=== PATIENT | female | born 1980 | race Caucasian/White ===

== ENCOUNTER → 2022-01-04 | Outpatient (CLI) | payer OTHER, MEDICAID ==
[~2022-01-04] MED LIST: ACET1TAB43 PO; ASPI-999 PO; CEPH-507 PO; CITA10TA9 PO; DOCU100C37 PO; FERR325T18 PO; FOLI1TAB33 PO; IBUP-1773 PO; PNV91TAB3 PO
[2022-01-04 16:14] LABS: BASOPHILS % (AUTO) 1 % (0-10); EOSINOPHILS # (AUTO) 0.1 10^3/uL (0.0-0.3); EOSINOPHILS % (AUTO) 2 % (0-10); HEMATOCRIT 36 % (35-52); HEMOGLOBIN 11.7 g/dL (11.5-16.0); LYMPHOCYTES # (AUTO) 1.4 10^3/uL (1.0-4.0); LYMPHOCYTES % (AUTO) 23 % (12-44); MEAN CORPUSCULAR HEMOGLOBIN 32 pg (25-34); MEAN CORPUSCULAR HGB CONC 33 g/dL (32-36); MEAN CORPUSCULAR VOLUME 97 fL (80-99); MONOCYTES # (AUTO) 0.3 10^3/uL (0.0-1.0); MONOCYTES % (AUTO) 5 % (0-12); NEUTROPHILS # (AUTO) 4.4 10^3/uL (1.8-7.8); NEUTROPHILS % (AUTO) 70 % (42-75); PLATELET COUNT 225 10^3/uL (130-400); WHITE BLOOD COUNT 6.3 10^3/uL (4.3-11.0)
== END ==
LOC: LABNPT 10:45
PROVIDERS: ATTEND Obstetrics & Gynecology
DX: N92.0 Excessive and frequent menstruation with regular cycle (principal)
CPT/HCPCS: 84443; 85025

== ENCOUNTER → 2022-01-04 | Outpatient (CLI) | payer OTHER, MEDICAID ==
[~2022-01-04] MED LIST changes: +ACET-11 PO; -ACET1TAB43 PO
== END ==
LOC: LAB 14:50
PROVIDERS: ATTEND Obstetrics & Gynecology
DX: Z53.9 Procedure and treatment not carried out, unspecified reason (principal)

== ENCOUNTER → 2022-01-06 | Outpatient (CLI) | payer OTHER, MEDICAID ==
[~2022-01-06] MED LIST changes: -ACET-11 PO; +ACET1TAB43 PO
--- NOTE | 2022-01-06 15:31 | Diagnostic Imaging Report ---
PROCEDURE: Pelvic comp/transvaginal sonogram. TECHNIQUE: Complete transabdominal and transvaginal pelvic ultrasound was performed. In addition, limited pelvic Doppler was performed. INDICATION: Excessive and frequent menstruation. Uterus is anteverted measuring 8.0 x 4.1 x 5.2 cm. Endometrium is 6 mm in thickness. No myometrial mass is detected. Right ovary measures 3.2 x 1.6 x 2.0 cm and left ovary measures 3.8 x 1.8 x 4.9 cm. Left ovary does contain 2 cysts. The largest cyst measures 3.5 x 1.8 x 3.3 cm. 2nd cyst measures 2.7 x 2.1 x 2.2 cm. There is blood flow to both ovaries. No free fluid is detected. IMPRESSION: Left ovarian cyst. No other significant abnormality is detected. Dictated by: Dictated on workstation # [id number]
== END ==
LOC: RAD 12:47
PROVIDERS: ATTEND Obstetrics & Gynecology
DX: N83.202 Unspecified ovarian cyst, left side (principal)
CPT/HCPCS: 76830; 76856